=== PATIENT | female | born 1975 | race Hispanic/Latino ===

== ENCOUNTER 2022-10-02 18:53 | Emergency (ER) | payer OTHER, BC ==
--- OUTSIDE RECORDS SUMMARY | 2022-10-02 18:58 | XMS REPORT | Continuity of Care Document ---
:1975 Author Organization [facility] t Address [address] [place] [address] Care Team Providers Name Role Phone LINDA SANDS Primary Care Physician Unavailable JOSEPHINE FRIEDMAN Attending Clinician Unavailable Chance BYRNE, Marsha Rico Attending Clinician LINDA SANDS Attending Clinician Unavailable Josephine Friedman PA-C Attending Clinician Rajiv Coulter MD Attending Clinician Yue Aldana MA Attending Clinician Unavailable Jeane Aguilera MA Attending Clinician Unavailable 2, [facility] Attending Clinician Unavailable Audrey Fitzgerald MA Attending Clinician Unavailable MARI ORDOÑEZ Attending Clinician Unavailable ADELE OCAMPO Attending Clinician Unavailable ADELE OCAMPO Attending Clinician Unavailable Caden Attending Clinician Unavailable Doctor Unassigned, Frankewing Attending Clinician Unavailable TIMOTHY MARR Attending Clinician Unavailable Rigoberto BELLAMY, Beverley Bell Attending Clinician Corwin Davis MD Attending Clinician Ariadna Barraza MD Attending Clinician ARIADNA BARRAZA Attending Clinician Unavailable Shahriar Davidson DO Attending Clinician Adele Ocampo MD Attending Clinician Linda Sands MD Attending Clinician LINDA SANDS Attending Clinician Unavailable Pob1, [facility] Attending Clinician Unavailable Gaurav Navas MD Attending Clinician Lab, Adc Fam Pob I Attending Clinician Unavailable Severiano Arauz PA-C Attending Clinician SEVERIANO ARAUZ Attending Clinician Unavailable JOSEPHINE FRIEDMAN Admitting Clinician Unavailable Caden Admitting Clinician Unavailable Christi BYRNE, Ariadna Admitting Clinician ARIADNA BARRAZA Admitting Clinician Unavailable Payers Payer Name Policy Type Policy Number Effective Date Expiration Date Braxton machado [employer] HMO [id number] 2011 00:00:00 [facility] [id number] 2021 EMPLOYEE PLAN 00:00:00 [employer] (EPO) [id number] 2011 00:00:00 Problems Condition Condition Condition Status Onset Resolution Last Treating Co mments Source Name Details Category Date Date Treatment Clinician Date Dyslipidem Dyslipidem Disease Active Overview : Methodi ia ia 03-[address] 00:00: g of this Hospita 00 note l might be different from the original. Formattin g of this note might be different from the original. elevated TG, low HDL Fatty Fatty Disease Active Methodi liver liver 03-30 st 00:00: Hospita 00 l Thyroid Thyroid Problem Active [facility] nodule Nodule 29 Family 00:00: Practic 00 e Hyperlipid Hyperlipid Problem Active [facility] emia emia 29 Family 00:00: Practic 00 e Obesity Obesity Problem Active [facility] 7-29 Family 00:00: Practic 00 e Dizziness Dizziness Disease Active [facility] 04-03 st 00:00: Hospita 00 l Sludge in Sludge in Disease Active Met hodi gallbladde gallbladde 06-17 st r r 00:00: Hospita 00 l Prediabete Prediabete Disease Active 2018-11 M ethodi s s 11-26 st 00:00: Hospita 00 l Screening Screening Disease Active Overview: Univers for for 04-05 Formattin ity of colorectal colorectal 00:00: g of this [place] cancer cancer 00 note Medical might be Branch different from the original. Added automatic ally from request for surgery [id number] Obesity Obesity Disease Active Methodi (BMI (BMI 5-15 st 30-39.9) 30-39.9) 00:00: Hospit a 00 l RUSS RUSS Disease Active Methodi (obstructi (obstructi 5-12 st ve sleep ve sleep 00:00: Hospit a apnea) apnea) 00 l Erythema Erythema Disease Active Unive rs of nasal of nasal 3-20 ity of skin skin 00:00: [place] [facility] Branch Immunizati Immunizati Disease Active U nivers on on 18 [place] [address] [place] [address] Branch Carpal Carpal Disease Active Methodi tunnel tunnel 7[address] st syndrome syndrome 00:00: Hospit a of right of right 00 l wrist wrist Fibromyalg Fibromyalg Disease Active M ethodi ia ia 18 st 00:00: Hospita 00 l Vaginal Vaginal Disease Active Univers lesion lesion 6-05 ity of 00:00: [address] Abnormal Abnormal Disease Active Unive rs cervix cervix 6-05 ity of finding finding 00:00: [address] Allergies, Adverse Reactions, Alerts Allergy Allergy Status Severity Reaction(s) Onset Inactive Treating Comm ents Source Name Type Date Date Clinician NO KNOWN Drug Active Univers ALLERGIE Class ity of S [facility] Family History Family Member Diagnosis Comments Start Date Stop Date Source Natural father Coronary artery disease [facility] Natural father Hyperlipidemia Method [facility] Natural father Hypertension [facility] Natural father Rheum arthritis [facility] Natural mother Diabetes [facility] Natural mother Heart disease [facility] Natural mother Kidney disease Method [facility] Natural mother Thyroid cancer Method [facility] Social History Social Habit Start Date Stop Date Quantity Comments Source Alcohol intake 2022-09-29 2022-09-29 Ex-drinker [facility] 00:00:00 00:00:00 (finding) Exposure to 2022-05-03 2022-05-13 Not sure University of SARS-CoV-2 00:00:00 12:52:00 [facility] (event) Branch Tobacco use and 2022-03-30 2022-03-30 Smokeless tobacco [facility] exposure 00:00:00 00:00:00 non-user Sex Ass[birth year] [facility] 00:00:00 00:00:00 Smoking Status Start Date Stop Date Source Never smoked tobacco [facility] Medications Ordered Filled Start Stop Current Ordering Indication Dosage Frequency Signature Comments Components Source Medication Medication Date Date Medication? Clinician (SIG) Name Name vitamin 2021- No 500ug Take 500 Univ ers B-12 (B-12 7-05 13-07 mcg by ity of [facility]) 500 14:30: 00:00 mouth [place] mcg tablet 55 :00 daily. Medical Branch vitamin 2021- No 500ug Take 500 Univ ers B-12 (B-12 7-05 13-07 mcg by ity of [facility]) 500 14:30: 00:00 mouth [place] mcg tablet 55 :00 daily. Medical Branch MULTIVITAMI 2021- No Take by Un sabine N ORAL 05-13- mouth. ity of 14:30: 00:00 [place] 46 :00 Medical Branch MULTIVITAMI 2021- No Take by Un sabine N ORAL 05-13- mouth. ity of 14:30: 00:00 [place] 46 :00 Medical Branch aspirin 81 2021- No 81mg Take 81 mg Univers mg chewable 05-13 by mouth ity of tablet 14:30: 00:00 daily. [place] 36 :00 Medical Branch aspirin 81 2021- No 81mg Take 81 mg Univers mg chewable 05-13 by mouth ity of tablet 14:30: 00:00 daily. [place] 36 :00 Medical Branch fluconazole 2021- No [id number] 150mg Take 1 Methodi (DIFLUCAN) 04-[address] 150 MG 00:00: 04:59 (150 mg Hospita tablet 00 :00 total) by l mouth once for 1 dose. May repeat x 1 dose in 3-4 days if needed. sulfamethox 2021- No [id number] 1{tbl} Q.5D Take 1 Methodi azole-trime 04-[address] thoprim 00:00: 04:59 mouth 2 Hospit a (Bactrim 00 :00 (two) l DS) 800-160 times a mg per day for 5 tablet days. meclizine 2021-0 2021- No 25mg Q.[id number] Take 25 mg Methodi (ANTIVERT) 04-13 06-[id number] by mouth [address] 25 mg 11:13: 00:00 3D (three) Hospita tablet 18 :00 times a l day as needed for dizziness. ondansetron 2021-0 2021- No 4mg Q8H Take 4 mg Methodi (ZOFRAN) 4 -05 12- by mouth st MG tablet 11:13: 00:00 every 8 Hosp issa 18 :00 (eight) l hours as needed for nausea or vomiting. ondansetron 2021-0 Yes 4mg Take 4 mg U nivers 4 mg tablet 07 by mouth. ity of 00:00: [address] ondansetron 2021-0 Yes 4mg Take 4 mg U nivers 4 mg tablet 04-13 by mouth. ity of 00:00: [address] ondansetron 2021-0 Yes 4mg Take 4 mg U nivers 4 mg tablet 04-13 by mouth. ity of 00:00: [address] ondansetron 2021-0 Yes 4mg Take 4 mg U nivers 4 mg tablet 04-13 by mouth. ity of 00:00: [address] azelastine 2021-0 Yes [id number] 1{spray Q.5D 1 spray Methodi (ASTELIN) 04-13 } into each st 137 mcg 00:00: nostril 2 Hospi ta (0.1 %) 00 (two) l nasal spray times a day. Use in each nostril as directed meclizine 2021-0 Yes [id number] 25mg Q.30231938 Take 1 Methodi (ANTIVERT) -07 [id number] tablet (25 st 25 mg 00:00: 3D mg total) Hospita tablet 00 by mouth 3 l (three) times a day as needed for dizziness. ondansetron 2021-0 Yes [id number] 4mg Q12H Take 1 Methodi (ZOFRAN) 4 -07 tablet (4 st MG tablet 00:00: mg total) Hos enmanuel 00 by mouth l every 12 (twelve) hours as needed for nausea or vomiting. MULTIVITAMI 2021- No Take by Me willow N ORAL 03-30-[address] 14:53: 00:00 Hospita 24 :00 l aspirin 81 2021- No 81mg QD Chew 81 mg Methodi mg chewable 03-30-[address] tablet 14:53: 00:00 Hospita 23 :00 l doxycycline 2021- No 100mg Q.5D Take 100 Methodi (VIBRAMYCIN 5-19 06-[address] ) 100 MG 00:00: 00:00 mouth 2 Hospi ta capsule 00 :00 (two) l times a day. clindamycin 2021- No APPLY Meth miladis (CLINDAGEL) 03-[address] 1 % gel 00:00: 00:00 DAY TO Hospita 00 :00 FACE l oseltamivir 2021- No TAKE 1 Met hodi (TAMIFLU) 16 03-[address] 75 MG 00:00: 00:00 TWO TIMES Hospit a capsule 00 :00 DAILY l meclizine Yes [id number] 12.5mg Take 1 Univers 12.5 mg 5-29 tablet by ity of tablet 00:00: mouth 3 (three) Medical times Branch daily as needed for Dizziness. meclizine Yes [id number] 12.5mg Take 1 Univers 12.5 mg 5-29 tablet by ity of tablet 00:00: mouth 3 (three) Medical times Branch daily as needed for Dizziness. meclizine Yes [id number] 12.5mg Take 1 Univers 12.5 mg 5-29 tablet by ity of tablet 00:00: mouth 3 (three) Medical times Branch daily as needed for Dizziness. meclizine Yes [id number] 12.5mg Take 1 Univers 12.5 mg 5-29 tablet by ity of tablet 00:00: mouth 3 (three) Medical times Branch daily as needed for Dizziness. proMETHazin 2021- No [id number] 12.5mg Take 1 Univers e 12.5 mg 5-29 07-07 tablet by ity of tablet 00:00: 00:00 mouth [place] 00 :00 every 8 Medical (eight) Branch hours as needed for Nausea and Vomiting (N/V). proMETHazin 2021- No [id number] 12.5mg Take 1 Univers e 12.5 mg 04-04 tablet by ity of tablet 00:00: 00:00 mouth [place] 00 :00 every 8 Medical (eight) Branch hours as needed for Nausea and Vomiting (N/V). TIZANIDINE 2019-11 Yes [id number] 4mg TAKE 1-2 Univers 4 mg tablet 1-03 TABLETS BY it y of 00:00: MOUTH [place] 00 EVERY 8 Medical (EIGHT) Branch HOURS NEEDED (MUSCLE PAIN OR SPASM). TIZANIDINE 2019-11 Yes [id number] 4mg TAKE 1-2 Univers 4 mg tablet 1-03 TABLETS BY it y of 00:00: MOUTH [place] 00 EVERY 8 Medical (EIGHT) Branch HOURS NEEDED (MUSCLE PAIN OR SPASM). TIZANIDINE 2019-11 Yes [id number] 4mg TAKE 1-2 Univers 4 mg tablet 1-03 TABLETS BY it y of 00:00: MOUTH [place] 00 EVERY 8 Medical (EIGHT) Branch HOURS NEEDED (MUSCLE PAIN OR SPASM). TIZANIDINE 2019-11 Yes [id number] 4mg TAKE 1-2 Univers 4 mg tablet 1-03 TABLETS BY it y of 00:00: MOUTH [place] 00 EVERY 8 Medical (EIGHT) Branch HOURS NEEDED (MUSCLE PAIN OR SPASM). DULOXETINE 2021- No [id number] 20mg TAKE 1 Univers 20 mg 07-07 CAPSULE BY ity of capsule 00:00: 00:00 MOUTH [place] 00 :00 DAILY. Medical STOP THE Branch 30MG DOSE DULOXETINE 2021- No [id number] 20mg TAKE 1 Univers 20 mg 07-07 CAPSULE BY ity of capsule 00:00: 00:00 MOUTH [place] 00 :00 DAILY. Medical STOP THE Branch 30MG DOSE Immunizations Ordered Filled Immunization Date Status Comments [facility] [place] [facility] Immunization Name Name COVID-19, mRNA, COVID-19, mRNA, 2021-01-30 Completed [facility] LNP-S, PF, 30 LNP-S, PF, 30 00:00:00 Practice mcg/0.3 mL dose mcg/0.3 mL dose SARS-COV-2 SARS-COV-2 2021-01-01 Completed [facility] (COVID-19) vaccine, (COVID-19) vaccine, 00:00:00 Practice UNSPECIFIED UNSPECIFIED SARS-COV-2 COVID-19 2020-12-24 Completed Unive rsity of PFIZER VACCINE 00:00:00 [facility] SARS-COV-2 COVID-19 2020-12-24 Completed Unive rsity of PFIZER VACCINE 00:00:00 [facility] SARS-COV-2 COVID-19 2020-12-24 Completed Unive rsity of PFIZER VACCINE 00:00:00 [facility] SARS-COV-2 COVID-19 2020-12-24 Completed Unive rsity of PFIZER VACCINE 00:00:00 [facility] MODERNA COVID-19 2020-12-02 Completed Methodis t [facility] 2020-11-04 Completed Methodis t MRNA VACCINATION 00:00:00 [facility] Influenza Virus 2020-07-22 Completed Universit y of Vaccine 00:00:00 [facility] Influenza Virus 2020-07-22 Completed Universit y of Vaccine 00:00:00 [facility] Influenza Virus 2020-07-22 Completed Universit y of Vaccine 00:00:00 [facility] Influenza Virus 2020-07-22 Completed Universit y of Vaccine 00:00:00 [facility] Influenza, 2020-07-22 Completed [facility] Unspecified 00:00:00 [facility] TDAP (ADACEL) 2019-11-09 Completed University of VACCINE 00:00:00 [facility] TDAP (ADACEL) 2019-11-09 Completed University of VACCINE 00:00:00 [facility] TDAP (ADACEL) 2019-11-09 Completed University of VACCINE 00:00:00 [facility] TDAP (ADACEL) 2019-11-09 Completed University of VACCINE 00:00:00 [facility] Tdap 2019-11-09 Completed [facility] 00:00:00 [facility] Influenza Virus 2019-07-08 Completed Universit y of Vaccine 00:00:00 [facility] Influenza Virus 2019-07-08 Completed Universit y of Vaccine 00:00:00 [facility] Influenza Virus 2019-07-08 Completed Universit y of Vaccine 00:00:00 [facility] Influenza Virus 2019-07-08 Completed Universit y of Vaccine 00:00:00 [facility] Influenza, 2019-07-08 Completed [facility] Unspecified 00:00:00 Hospital Vital Signs Vital Name Observation Time Observation Value Comments Source Systolic blood 2022-05-13 18:37:00 126 mm[Hg] Univer sity of [facility] Diastolic blood 2022-05-13 18:37:00 88 mm[Hg] Unive rsity [facility] Heart rate 2022-05-13 18:37:00 76 /min General acute hospital Respiratory rate 2022-05-13 18:37:00 18 /min [facility] height 2022-05-13 18:37:00 157.5 cm General acute hospital Body weight 2022-05-13 18:37:00 83.008 kg General acute hospital BMI 2022-05-13 18:37:00 33.47 kg/m2 General acute hospital BP Diastolic 2021-06-04 00:00:00 83 mm[Hg] [facility] Height 2021-06-04 00:00:00 62 [in_i] [facility] BMI (Body Mass 2021-06-04 00:00:00 33.3 kg/m2 [facility] Practice BP Systolic 2021-06-04 00:00:00 127 mm[Hg] [facility] Body Weight 2021-06-04 00:00:00 182 [lb_av] [facility] BP Diastolic 2021-05-13 00:00:00 89 mm[Hg] [facility] Height 2021-05-13 00:00:00 62 [in_i] [facility] BMI (Body Mass 2021-05-13 00:00:00 33.6 kg/m2 [facility] Practice BP Systolic 2021-05-13 00:00:00 145 mm[Hg] [facility] Body Weight 2021-05-13 00:00:00 183.6 [lb_av] [facility] Systolic blood 2022-09-29 14:08:00 152 mm[Hg] Method ist Hospital pressure Diastolic blood 2022-09-29 14:08:00 83 mm[Hg] [facility] pressure Heart rate 2022-09-29 14:08:00 73 /min [facility] t Hospital Respiratory rate 2022-09-29 14:08:00 16 /min [facility] Body height 2022-09-29 14:08:00 157.5 cm [facility] Body weight 2022-09-29 14:08:00 86.637 kg [facility] BMI 2022-09-29 14:08:00 34.93 kg/m2 [facility] Body temperature 2022-04-21 20:12:00 37.5 Cande [facility] Oxygen saturation in 2022-04-13 15:26:00 97 /min [facility] Arterial blood by Pulse oximetry Procedures Procedure Date / Time Performing Clinician Source Performed CT HEAD WO CONTRAST 2022-08-13 20:42:12 [facility] [place] [facility] US PELVIS COMPLETE WITH 2022-07-14 14:11:52 Josephine Friedman [facility] TRANSVAGINAL Medical Branch COMPREHENSIVE HEARING 2022-04-21 20:34:00 [facility] TEST TSH WITH REFLEX TO FREE 2022-04-10 13:32:00 [facility] T4 VITAMIN D 25 HYDROXY 2022-04-10 13:32:00 [facility] LEVEL HEMOGLOBIN A1C 2022-04-10 13:32:00 [facility] LIPID PANEL 2022-04-10 13:32:00 [facility] COMPREHENSIVE METABOLIC 2022-04-10 13:32:00 [facility] PANEL URINALYSIS SCREEN AND 2022-04-10 13:32:00 [facility] [place] [facility] MICROSCOPY, WITH REFLEX TO CULTURE CBC WITH PLATELET AND 2022-04-10 13:32:00 [facility] [place] [facility] DIFFERENTIAL US, thyroid 2021-05-13 00:00:00 [facility] Yuko aguilar Practice US, CAROTID 2021-05-13 00:00[facility]00 [facility]EXTRACRANIAL Practice ARTERY (BILATERAL) Endometrial Ablation 2012-11-07 00:00:00 [facility] D&c of Cervical Stump 2002-11-07 00:00:00 Angélica sparks [facility] Plan of Care Planned Activity Planned Date Details Comments Source Future Scheduled 2022-09-29 HEPATITIS B [facility] Test 07:56:18 VACCINES (1 of 3 - Hospital 3-dose series) [code = HEPATITIS B VACCINES (1 of 3 - 3-dose series)] Future Scheduled 2022-09-29 COLONOSCOPY [facility] Test 07:56:18 SCREENING [code = Hospital COLONOSCOPY SCREENING] Future Scheduled 2022-09-29 INFLUENZA VACCINE Method ist Test 07:56:18 [code = INFLUENZA Hospital VACCINE] Future Scheduled 2022-09-29 BREAST CANCER [facility] Test 07:56:18 SCREENING [code = Hospital BREAST CANCER SCREENING] Future Scheduled 2022-09-29 COVID-19 VACCINE (5 Postponed from Me thodist Test 07:56:18 - Booster for 03/27/2021 Hospital Moderna series) (Patient Refused) [code = COVID-19 VACCINE (5 - Booster for Moderna series)] Future Scheduled 2022-09-29 Screening for [facility] Test 07:56:18 malignant neoplasm Hospital of cervix (procedure) [code = 440756345] Encounters Start End Encounter Admission Attending Care Care Encounter Source Date/Time Date/Time Type Type Clinicians Facility Department ID 2021-09-06 Emergency [facility] [id number] Univers 21:57:33 [facility] 2023-05-16 2023-05-16 Outpatient R ELDER [facility] [id number] Univers 15:30:00 15:30:00 [facility] [place] [facility] 2023-05-16 2023-05-16 Outpatient R ELDER [facility] [id number] Univers 15:30:00 15:30:00 [facility] [place] [facility] 2022-09-29 2022-09-29 Office Chance, 1.2.840.1 [id number] Methodi 08:15:00 10:03:32 Visit Marsha 20025.1.[address] Viraf 3.430.2.7 Hospit a .3.751689 l .8 2022-09-29 2022-09-29 Outpatient CHANCE [facility] [id number] [place] 00:00:00 00:00:[address] MAR[address] 2022-09-29 2022-09-29 Travel 1.2.840.1 1.2.603.079 [id number] Methodi 00:00:00 00:00:[address] 3.430.2.7 0.2.7.3.698 Ho spita .3.144561 084.8 l .8 2022-08-17 2022-08-17 Travel 1.2.840.1 1.2.070.216 [id number] Methodi 00:00:00 00:00:[address] 3.430.2.7 0.2.7.3.698 Ho spita .3.691371 084.8 l .8 2022-08-13 2022-08-13 Travel 1.2.840.1 1.2.733.743 [id number] Methodi 00:00:00 00:00:[address] 3.430.2.7 0.2.7.3.698 Ho spita .3.802963 084.8 l .8 2022-08-13 2022-08-13 Outpatient LOWBER, [facility] [id number] [place] 00:00:00 00:00:[address] 2022-07-26 2022-07-26 Telephone [facility] 1.2.840.114 [id number] Univers 00:00:00 00:00:00 Josephine HARTMAN 350.1.13.10 i ty [facility] 4.2.7.2.686 [facility] [id number] [place] [address] 2022-07-14 2022-07-14 [facility] [id number] Univers 07:52:32 23:59:00 JOSEPHINE rehman [facility] [place] 2022-07-14 2022-07-14 [facility] 1.2.840.114 [id number] [facility] 07:52:32 23:59:00 Encounter Josephine HARTMAN 350.1.13.10 ity [facility] 4.2.7.2.686 [facility] [id number] [facility] 806 Branch 2022-06-18 2022-06-18 Documentat Marylin, 1.2.840.1 [id number] Methodi 00:00:00 00:00:00 ion Rajiv 91560.1.[address] Azalia 3.430.2.7 Hospi ta .3.107818 l .8 2022-06-16 2022-06-16 Procedure 1.2.840.1 [id number] Methodi 13:00:00 16:58:[address] 3.430.2.7 Hospit a .3.932748 l .8 2022-06-16 2022-06-16 Telephone Vinnie 1.2.840.1 [id number] Methodi 00:00:00 00:00:00 [place] [address]65.1.[address] 3.430.2.7 Hospit a .3.269963 l .8 2022-06-16 2022-06-16 Travel 1.2.840.1 1.2.077.508 [id number] Methodi 00:00:00 00:00:[address] 3.430.2.7 0.2.7.3.698 spita .3.401542 084.8 l .8 2022-06-16 2022-06-16 Outpatient [facility] [id number] [place] 00:00:00 00:00:[address] 2022-06-07 2022-06-07 Telephone Willy, 1.2.840.1 [id number] Methodi 00:00:00 00:00:[address] 3.430.2.7 Hospit a .3.019302 l .8 2022-05-13 2022-05-13 Quality Assurance Representative 2, Adc Lab [facility] 1.2.840.114 [id number] [facility] 15:15:00 15:30:00 Visit Josephine Friedman 350.1.13.10 ity [facility] 4.2.7.2.686 [place] [id number] Me dical NAL [address] [facility] 2022-05-13 2022-05-13 [facility] [id number] Univers 13:00:00 14:34:30 JOSEPHINE [facility] 2022-05-13 2022-05-13 [facility] 1.2.177.353 [id number] [facility] 13:00:00 14:34:30 Visit Josephine HARTMAN 350.1.13.10 i ty [facility] 4.2.7.2.686 [place] [id number] Me dical NAL [address] [facility] 2022-05-13 2022-05-13 Outpatient [facility] Univers 13:00:00 14:34:30 [facility] [place] [facility] 2022-04-21 2022-04-21 Office Linda Sands 1.2.840.1 [id number] Methodi 15:30:00 16:06:39 Visit Rajiv Coulter 13741.1.[address] 3.430.2.7 Hospit a .3.549576 l .8 2022-04-21 2022-04-21 Outpatient WICHO [facility] [id number] [place] 00:00:00 00:00:00 [address] 2022-04-16 2022-04-16 Telephone Yara Fitzgerald.2.840.1 [id number] Methodi 00:00:00 00:00:[address] 3.430.2.7 Hospit a .3.528216 l .8 2022-04-14 2022-04-14 Orders Yara Sands.2.840.1 [id number] Methodi 00:00:00 00:00:00 Only Linda 52123.1.[address] 3.430.2.7 Hospit a .3.363948 l .8 2022-04-13 2022-04-13 Office Wagoner, 1.2.840.1 [id number] Methodi 10:30:00 11:15:58 Visit Wondiful 23593.1.[address] 3.430.2.7 Hospit a .3.322084 l .8 2022-04-13 2022-04-13 Travel 1.2.840.1 1.2.076.293 [id number] Methodi 00:00:00 00:00:[address] 3.430.2.7 0.2.7.3.698 Ho spita .3.088078 084.8 l .8 2022-04-13 2022-04-13 Outpatient WICHO, [facility] [id number] [place] 00:00:00 00:00:[address] 2022-04-10 2022-04-10 Orders Wicho, 1.2.840.1 [id number] Methodi 00:00:00 00:00:00 Only Wondiful [address]756.1.[address] 3.430.2.7 Hospit a .3.052998 l .8 2022-04-06 2022-04-06 Travel 1.2.840.1 1.2.191.127 [id number] Methodi 00:00:00 00:00:[address] 3.430.2.7 0.2.7.3.698 Ho spita .3.962577 084.8 l .8 2022-03-30 2022-03-30 Office Wicho, 1.2.840.1 [id number] Methodi 14:30:00 15:16:57 Visit Wondiful 51878.1.[address] 3.430.2.7 Hospit a .3.434785 l .8 2022-03-30 2022-03-30 Travel 1.2.840.1 1.2.597.924 [id number] Methodi 00:00:00 00:00:[address] 3.430.2.7 0.2.7.3.698 Ho spita .3.102320 084.8 l .8 2022-03-30 2022-03-30 Outpatient WICHO [facility] [id number] [place] 00:00:00 00:00:00 [address] 2022-03-25 2022-03-25 Travel 1.2.840.1 1.2.236.799 [id number] Methodi 00:00:00 00:00:[address] 3.430.2.7 0.2.7.3.698 Ho spita .3.603260 084.8 l .8 2022-03-12 2022-03-12 [facility] [id number] Univers 14:44:25 23:59:00 JOSEPHINE rehman [facility] 2022-03-12 2022-03-12 [facility] 1.2.840.114 [id number] Univers 14:44:25 23:59:00 Encounter Josephine HARTMAN 350.1.13.10 [facility] 4.2.7.2.686 [facility] [phone] [address] 2022-03-02 2022-03-02 Outpatient Tamra ORDOÑEZ [facility] [id number] Univers 08:00:00 08:00:00 MARI rehman [facility] 2021-11-11 2021-11-11 Outpatient Tamra FRIEDMAN [facility] [id number] Univers 00:00:00 00:00:00 JOSEPHINE rehman [facility] 2021-10-21 2021-10-21 Outpatient ADELE MAYER [facility] [id number] Univers 09:00:00 09:00:00 ADELE OCAMPO [facility] 2021-09-30 2021-09-30 Outpatient Clint_T VFP VFP [id number] [place] 02:08:00 02:08:00 [id number] Family Practic e 2021-08-262021-08-26 Outpatient Daniel_T VFP VFP 20 [facility] 02:09:00 02:09:00 [id number] Family Practic e 2021-06-09 2021-06-09 Outpatient Daniel_T VFP VFP 03-26 [facility] 11:25:00 11:25:00 [id number] Family Practic e 2021-06-04 2021-06-04 Katya N Daniel_T VFP [place] - [id number] 0 [place] 00:00:00 00:00:00 FLORENCE Valente: [place] [id number] [facility] 16[facility] Medical - Practi c Shadow JORI_Gill e [place] ow [facility], [address], [place] [address] , Ph. 2021-06-02 2021-06-02 Outpatient Daniel_T VFP VFP 03-26 [facility] 04:35:00 04:35:00 [id number] Family Practic e 2021-05-21 2021-05-21 Orders Doctor SEVERIANO 1.2.840.114 [id number] Univers 00:00:00 00:00:00 Only Unassigned, JOVANY 350.1.13.10 ity of [place] [facility] 4.2.7.2.686 [place] [phone] [address] 2021-05-16 2021-05-16 Outpatient Daniel_T VFP VFP 03-26 [facility] 12:10:00 12:10:00 [id number] Family Practic e 2021-05-13 2021-05-13 Tevin Daniel_T VFP [place] - 0853143-5 0 Village 00:00:00 00:00:00 [facility] [id number] Family [facility] - Pracapollo bain MD: [id number] JORI_MIGUELITO_Kwabena sparks Shadow ow [place] [facility], [address], [place] [address] , Ph. 2021-05-12 2021-05-12 Outpatient Tamra MARR [facility] [id number] Univers 08:30:00 08:30:00 TIMOTHY itadeola [facility] 2021-05-12 2021-05-12 Outpatient Clint_Praveen VFP VFP [id number] 5-20 [place] 02:33:00 02:33:00 [id number] Family Practic e 2021-05-07 2021-05-07 Outpatient Tamra FRIEDMAN [facility] [id number] Univers 08:45:00 08:45:00 JOSEPHINE ori [facility] 2021-05-06 2021-05-06 Office Elder [facility] 1.2.340.920 [id number] Univers 14:59:47 16:11:39 Visit Josephine Hartman 350.1.13.10 i [place] [phone] Ga dical [address] 2021-05-06 2021-05-06 Outpatient R ELDER [facility] [id number] Univers 15:00:00 15:00:00 [facility] 2021-04-20 2021-04-20 Outpatient Tamra FRIEDMAN [facility] [id number] Univers 08:00:00 08:00:00 [facility] 2021-04-03 2021-04-04 Emergency Beverley [place] 1.2.840 .114 [id number] Univers 10:49:00 11:55:00 Corwin Davis 350.1.13.10 ity of [facility] 4.2.7.2.686 [place] [phone] [facility] [address] [place] 2021-04-03 2021-04-04 [facility] [id number] Univers 10:49:00 11:55:00 [facility] 2021-04-03 2021-04-03 Orders Doctor العلي 1.2.840.114 [id number] Univers 00:00:00 00:00:00 Only Unassigned, JOVANY 350.1.13.10 ity of [place] [facility] 4.2.7.2.686 [place] [phone] [facility] [address] 2021-01-22 2021-01-22 Patient Stuart [facility] 1.2.840.114 [id number] Univers 00:00:00 00:00:00 Outreach Shahriar PRIMARY 350.1.13.10 i ty of [facility] [place].2.7.2.[place] [phone] Ga dical [address] [place] 2020-10-15 2020-10-15 [facility] 1.2.580.886 [id number] Univers 08:58:52 09:13:43 Visit Adele T [place] 350.1.13.10 it[place].2.[place] [phone] Ga dical nal 085 [facility] 2020-10-15 2020-10-15 Outpatient R ADELE OCAMPO [facility] [id number] Univers 09:00:00 09:00:00 ADELE OCAMPO ity of [facility] 2020-09-07 2020-09-07 [facility] 1.2.840.114 [id number] Univers 00:00:00 00:00:00 Wondiful A [place] 350.1.13.10 it[place].2.[place] [phone] Ga dical nal 044 [facility] 2020-07-07 2020-07-07 [facility] 1.2.840.114 [id number] Univers 00:00:00 00:00:00 Wondiful A [place] 350.1.13.10 it[place].2.[place] [phone] Ga dical nal 044 [facility] 2020-06-16 2020-06-16 [facility] 1.2.569.120 [id number] Univers 14:43:49 23:59:00 Encounter Wondiful A [place] 350.1.13.10 ity of [place] 4.2.7.2.686 [place] [phone] [facility] [address] [place] 2020-06-16 2020-06-16 [facility] [id number] Univers 00:00:00 00:00:00 WONDIFUL ity o f [facility] 2020-06-16 2020-06-16 Orders Doctor SEVERIANO 1.2.840.114 [id number] Univers 00:00:00 00:00:00 Only Unassigned, JOVANY 350.1.13.10 ity of [place] HOSPITAL 4.2.7.2.686 [place] [phone] [address] 2020-06-15 2020-06-15 [facility] 1.2.840.114 [id number] Univers 00:00:00 00:00:00 Wondiful A [place] 350.1.13.10 it[place].2.[place] [phone] Ga dical nal 044 [facility] 2020-06-09 2020-06-09 Quality Assurance Representative 2, Adc Lab [facility] 1.2.840.114 [id number] Univers 13:22:41 13:37:41 Visit Linda Sands A [place] 350.1.13. 10 it[place] of [place].2.7.2.[place] [phone] Ga dical nal 353 [facility] 2020-06-09 2020-06-09 Office [facility] 1.2.840.114 [id number] Univers 11:26:35 12:17:20 Visit Wondiful A [place] 350.1.13.10 it[place].2.[place] [phone] Ga dical nal 044 [facility] 2020-06-09 2020-06-09 Outpatient R WICHO [facility] [id number] Univers 11:30:00 11:30:00 WONDIFUL ity o f [facility] 2020-06-09 2020-06-09 Orders SEVERIANO Sands 1.2.840.114 [id number] Univers 00:00:00 00:00:00 Only Wondiful A JOVANY 350.1.13.10 ity of HOSPITAL 4.2.7.2.686 [place] [phone] [address] 2020-05-27 2020-05-27 Outpatient R WICHO [facility] [id number] Univers 08:45:00 08:45:00 WONDIFUL ity o f [facility] 2020-05-26 2020-05-26 Urgent Pob1, Acute Care Clinic [facility] 1. 2.840.114 [id number] Univers 12:54:44 13:14:44 Care [facility] 350.1.13.1 0 ity of [place] 4.2.7.2.686 [place] Professio [phone] Ga dical nal 044 [place] Office [facility] 2020-05-26 2020-05-26 Outpatient R WICHO [facility] [id number] Univers 13:00:00 13:00:00 WONDIFUL ity o f [facility] 2020-05-20 2020-05-20 [facility] 1.2.840.114 [id number] Univers 00:00:00 00:00:00 Wondiful A Health 350.1.13.10 ity of [place] 4.2.7.2.686 [place] Professio [phone] [facility] nal 044 [facility] 2020-05-10 2020-05-10 Telephone SEVERIANO Navas 1.2.835.688 [id number] Univers 00:00:00 00:00:00 Gaurav MANZO 350.1.13.10 i ty of [facility] 4.2.7.2.686 [place] [phone] [address] 2020-05-08 2020-05-08 Laboratory Lab, [facility] Fam Pob I [facility] 1.2. 840.114 [id number] Univers 14:35:31 14:55:31 Only Severiano [facility] 350.1.13.10 ity of [place] 4.2.7.2.686 [place] Professio [phone] Ga dicme nal 044 [place] Office [facility] 2020-05-08 2020-05-08 Outpatient R [facility] [id number] Univers 14:40:00 14:40:00 ity [facility] 2020-05-08 2020-05-08 Outpatient R JJ [facility] [id number] Univers 14:40:00 14:40:00 SEVERIANO rehman [facility] 2020-04-25 2020-04-25 Outpatient R ELDER [facility] [id number] Univers 08:00:27 23:59:00 JOSEPHINE ity [facility] 2020-04-25 2020-04-25 Hospital [facility] 1.2.840.114 [id number] Univers 08:00:00 23:59:00 Encounter Josephine Hartman 350.1.13.10 ity of [place]2.7.2.686 [place] [phone] [facility] [address] [place] 2020-04-18 2020-04-18 Office [facility] 1.2.313.863 [id number] Univers 09:05:52 09:35:52 Visit Josephine Hartman 350.1.13.10 i ty [place].2.[place] [phone] [facility] 134 [facility] 2020-04-18 2020-04-18 Outpatient [facility] [id number] [facility] 09:00:00 09:00:00 [facility] 2020-04-18 2020-04-18 Letter Doctor SEVERIANO 1.2.840.114 [id number] Univers 00:00:00 00:00:00 (Out) Unassigned, JOVANY 350.1.13.10 ity of [place] [facility] 4.2.7.2.686 [place] [phone] [facility] 0[address] [place] 2020-03-23 2020-03-23 [facility] 1.2.840.114 [id number] Univers 00:00:00 00:00:00 Wondiful A Health 350.1.13.10 ity of [place] 4.2.7.2.686 [place] Professio [phone] [facility] 044 [place] Office [facility] 2020-02-15 2020-02-15 [facility]medici [facility] 1.2.840.114 [id number] Univers 07:41:08 15:57:32 ne Visit Linda A [place] 350.1.13.10 it[place] of [place]2.[place].2.[place] [phone] [facility] 044 [facility] 2020-02-15 2020-02-15 [facility] [id number] Univers 14:45:00 14:45:00 WONDIFUL ity o f [facility] 2020-01-30 2020-01-30 Telephone Wicho [facility] 1.2.840.114 [id number] Univers 00:00:00 00:00:00 Wondiful A Health 350.1.13.10 ity of [place] 4.2.7.2.686 [place] Professio [phone] [address] Office [facility] 2020-01-24 2020-01-24 Office Pob1, Acute Care Clinic [facility] 1. 2.840.114 [id number] Univers 08:45:20 11:56:15 Visit Linda [facility] 350.1.13.1 0 ity of [place] 4.2.7.2.686 [place] Professio [phone] [address] 2020-01-24 2020-01-24 Outpatient R WICHO [facility] [id number] Univers 08:45:00 08:45:00 WONDIFUL ity o f [facility] 2020-01-12 2020-01-12 Refill Wicho [facility] 1.2.840.114 [id number] Univers 00:00:00 00:00:00 Wondiful A Health 350.1.13.10 ity of [place] 4.2.7.2.686 [place] Professio [phone] [address] 2019-06-13 2019-06-13 Office Terrence [facility] 1.2.488.131 [id number] Univers 11:21:54 11:52:00 Visit Adele Morton [place] 350.1.13.10 ity of [place] 4[place].2.[place] [phone] [facility] 085 [facility] 2019-06-13 2019-06-13 Orders Doctor SEVERIANO 1.2.840.114 [id number] Univers 00:00:00 00:00:00 Only Unassigned, JOVANY 350.1.13.10 ity of [place] HOSPITAL 4.2.7.2.686 [place] [phone] Medi chayito [address] [place] Results Test Description Test Time Test Comments Results Result Comments Source Comprehensive metabolic panel 2022-04-12 10:59:00 Test Item Value Reference Range Interpretation Comme nts Glucose (test code = 116 mg/dL 65-99 H Fastin g reference 2345-7) interval For so meone without known d iabetes, a glucose valuebe tween 100 and 125 mg/dL i s consistent withprediabetes and should be confi rmed with afollow-up test . BUN (test code = 3094-0) 11 mg/dL 7-25 Creatinine (test code = 0.80 mg/dL 0.50-1.10 2160-0) EGFR Non-Afr. [place] See_Comment [Aut omated message] The (test code = 2775) system [facility] generated this result tra nsmitted reference range : > OR = 60 mL/min/1.73m 2. The reference range was not used to interpr et this result as normal/abnormal . EGFR See_Comment [Auto mated message] The (test code = 2774) system [facility] generated this result tra nsmitted reference range : > OR = 60 mL/min/1.73m 2. The reference range was not used to interpr et this result as normal/abnormal . BUN/creatinine ratio NOT APPLICABLE See_Comment [Aut omated message] The (test code = 3097-3) system which generated this result tra nsmitted reference range : 6 - 22 (calc). The ref erence range was not u sed to interpret this result as normal/abnormal . Sodium (test code = 139 mmol/L 335-126 6036-2) Potassium (test code = 4.1 mmol/L 3.5-5.3 2823-3) Chloride (test code = 108 mmol/L 98-110 2075-0) CO2 (test code = 2027-9) 24 mmol/L 20-32 Calcium (test code = 9.3 mg/dL 8.6-10.2 37873-9) Protein (test code = 6.9 g/dL 6.1-8.1 2885-2) Albumin, S (test code = 4.5 g/dL 3.6-5.1 1751-7) Globulin, total (test See_Comment [Auto mated message] The code = 70818-1) system which generated this result tra nsmitted reference range : 1.9 - 3.7 g/dL (calc) . The reference range was not used to interpr et this result as normal/abnormal . Albumin/globulin ratio See_Comment [Aut omated message] The (test code = 1759-0) system which generated this result tra nsmitted reference range : 1.0 - 2.5 (calc). The reference range was not u sed to interpret this result as normal/abnormal . Total bilirubin (test 0.7 mg/dL 0.2-1.2 code = 1975-2) Alkaline phosphatase 79 U/L 31-125 (test code = 6768-6) AST (test code = 1920-8) 18 U/L 10-35 ALT (test code = 1742-6) 17 U/L 6-29 JOSE (test code = JOSE) FASTING:YES FASTING: YES RAC (test code = RAC) Performing Organization Information: Site ID: RGA Name: [facility] Lab Address: [address] [place] [phone] Director: Eliseo Levy Lab Interpretation (test Abnormal code = 09101-3) [facility] Center[facility] [id number] 10:59:00 Test Item Value Reference Range Interpretation Comments Cholesterol, total 166 mg/dL See_Comment [Automat ed (test code = 2093-3) message ] The system which generated this result transmitted reference range : <=200. The reference range was not used to interpret this result as normal/abnormal . HDL cholesterol 52 mg/dL See_Comment [Automated (test code = 2085-9) message ] The system which generated this result transmitted reference range : > OR = 50. The reference range was not used to interpret this result as normal/abnormal . Triglycerides (test 103 mg/dL See_Comment [Automa gerardo code = 2571-8) message] The system which generated this result transmitted reference range : <=150. The reference range was not used to interpret this result as normal/abnormal . LDL cholesterol mg/dL (calc) Reference ra nge: calculated (test <100 Desira ble code = 64139-9) range <100 m g/dL for primary prevention; <70 mg/dL for patients with C HD or diabetic patients with > or = 2 CHD risk factors. LDL-C is now calculated using the Ja-Maldonado calculation, which is a validated novel method providin g better accuracy than the Friedewald equation in the estimation of LDL-C. Ja S S et al. JUVENAL. 2013;310(24): 4877-7433 (http://educati on .Digiscend .com/faq/BYV335 ) Cholesterol/HDL See_Comment [Automated ratio (test code = message] The 9830-1) system which generated this result transmitted reference range : <5.0 (calc). Th e reference range was not used to interpret this result as normal/abnormal . Non-HDL cholesterol See_Comment For dmitriy ents with (test code = diabetes plus 1 47422-8) major ASCVD ris k factor, treatin g to a non-HDL-C goal of <100 mg/dL (LDL-C of <70 mg/dL) is considered a therapeutic option. [Automated message] The system which generated this result transmitted reference range : <130 mg/dL (calc). The reference range was not used to interpret this result as normal/abnormal . JOSE (test code = FASTING:YES JOSE) FASTING: YES RAC (test code = Performing RAC) Organization Information: Site ID: RGA Name: [facility] Lab Address: [address] [place] [id number] Director: Eliseo Levy [facility] CenterHemoglobin [id number] 10:59:00 Test Item Value Reference Range Interpretation Comments Hemoglobin A1C See_Comment For the purpo se of (test code = screening for t he 4548-4) presence ofdiab etes: <5.7% Consiste nt with the absenc e of diabetes5.7-6.4 % Consistent with increased risk for diabetes (prediabetes)> or =6.5% Consisten t with diabetes This a ssay result is consi stent with a decrease d riskof diabetes . Currently, no consensus exist s regarding use ofhemoglobin A1 c for diagnosis of di abetes in children. According to [place] er[place] Diabetes Associ ation (ADA)guidelines , hemoglobin A1c <7.0% represents optimalcontrol in non- di abetic patients. Differentmetric s may apply to specif ic patient populat ions. Standards of Ga dical Care in Diabetes(ADA). [Automated mess age] The system ic h generated this result transmitted ref erence range: <5.7 % o f total Hgb. The reference range was not used to int erpret this result as normal/abnormal . JOSE (test code = FASTING:YES JOSE) FASTING: YES RAC (test code = Performing RAC) Organization Information: Site ID: RGA Name: [facility] Lab Address: [address] [place] [phone] Director: Eliseo Levy [facility] with platelet and [id number] 10:59:00 Test Item Value Reference Range Interpretation Comments WBC (test code = See_Comment [Automated 6690-2) message] The system which generated this result transmitted reference range : 3.8 - 10.8 Thousand/uL. Th e reference range was not used to interpret this result as normal/abnormal . RBC (test code = See_Comment H [Automated 789-8) message] The system which generated this result transmitted reference range : 3.80 - 5.10 Million/uL. The reference range was not used to interpret this result as normal/abnormal . HGB (test code = 15.9 g/dL 11.7-15.5 H 718-7) HCT (test code = 43.8 % 35.0-45.0 4544-3) MCV (test code = 84.9 fL 80.0-100.0 787-2) MCH (test code = 30.8 pg 27.0-33.0 785-6) MCHC (test code = 36.3 g/dL 32.0-36.0 H 786-4) RDW (test code = 13.2 % 11.0-15.0 788-0) Platelet count (test See_Comment [Autom ated code = 777-3) message] The system which generated this result transmitted reference range : 140 - 400 Thousand/uL. Th e reference range was not used to interpret this result as normal/abnormal . MPV (test code = 12.3 fL 7.5-12.5 776-5) Neutrophils, See_Comment [Automated absolute (test code message] The = 751-8) system which generated this result transmitted reference range : 1,500 - 7,800 cells/uL. The reference range was not used to interpret this result as normal/abnormal . Lymphocytes, See_Comment [Automated absolute (test code message] The = 731-0) system which generated this result transmitted reference range : 850 - 3,900 cells/uL. The reference range was not used to interpret this result as normal/abnormal . Monocytes, absolute See_Comment [Automa gerardo (test code = 742-7) message] The system which generated this result transmitted reference range : 200 - 950 cells/uL. The reference range was not used to interpret this result as normal/abnormal . Eosinophils, See_Comment [Automated absolute (test code message] The = 711-2) system which generated this result transmitted reference range : 15 - 500 cells/uL. The reference range was not used to interpret this result as normal/abnormal . Basophils, absolute See_Comment [Automa gerardo (test code = 704-7) message] The system which generated this result transmitted reference range : 0 - 200 cells/u L. The reference range was not used to interpr et this result as normal/abnormal . Neutrophils (test 61.1 % code = 770-8) Lymphocytes (test 28.2 % code = 736-9) Monocytes (test code 7.3 % = 5905-5) Eosinophils (test 2.5 % code = 713-8) Basophils + RC (test 0.9 % code = 706-2) JOSE (test code = FASTING:YES JOSE) FASTING: YES RAC (test code = Performing RAC) Organization Information: Site ID: RGA Name: [facility] Lab Address: [address] [place] [phone] Director: Eliseo Levy Lab Interpretation Abnormal (test code = 16164-6) [facility] CenterVitamin D 25 hydroxy [id number] 10:59:00 Test Item Value Reference Range Interpretation Comments Vitamin D, 34 ng/mL 30-100 Vitamin D Statu s 25-hydroxy (test 25-OH Vitam in D: code = 1988-) Deficiency: < 20 ng/mLInsufficie ncy : 20 - 29 ng/mLOptimal: > or = 30 ng/mL For 25-OH Vitamin D testing on patients on D2-supplementat ion and patients fo r whom quantitati on of D2 and D3 fractions is required, the QuestAssureD(TM )25 -OH VIT D, (D2,D3), LC/MS/ MS is recommended: order code 9288 8 (patients >2yrs).See Note 1 Note 1 For additional information, please refer to http://educatio n.Q uestDiagnostics .co m/faq/KEA259 (T his link is being provided for informational/e marisol ational purpose s only.) JOSE (test code = FASTING:YES FASTING: JOSE) YES RAC (test code = Performing RAC) Organization Information: Site ID: YOHAN Name: [facility] Lab Address: [address] [place] [phone] Director: Eliseo Levy [facility] CenterUrinalysis screen and microscopy, with reflex to culture 2022-04-12 10:59:00 Test Item Value Reference Interpretation Comments Range Color, UA (test YELLOW YELLOW code = 5778-6) Appearance (test CLEAR CLEAR code = 5767-9) Specific gravity, 1.001-1.035 urine (test code = 5811-5) pH, urine (test 5.0-8.0 code = 5803-2) Glucose, urine NEGATIVE NEGATIVE (test code = 18928-3) Bilirubin, UA (test NEGATIVE NEGATIVE code = 5770-3) Ketones, UA (test NEGATIVE NEGATIVE code = 2514-8) Occult blood, urine NEGATIVE NEGATIVE (test code = 5794-3) Protein, UA (test NEGATIVE NEGATIVE code = 31513-5) Nitrite, UA (test NEGATIVE NEGATIVE code = 5802-4) Leukocyte esterase, 2+ NEGATIVE A UA (test code = 5799-2) WBC, UA (test code NONE SEEN See_Comment [Automat ed message] = 5821-4) The system [employer] generated this result transmit gerardo reference range : < OR = 5 /HPF. Th e reference range was not used to interpret this result as normal/abnormal . RBC, UA (test code NONE SEEN See_Comment [Automat ed message] = 57654-0) The system [employer] generated this result transmit gerardo reference range : < OR = 2 /HPF. Th e reference range was not used to interpret this result as normal/abnormal . Squamous epithelial 0-5 See_Comment [Automa gerardo message] cells, UA (test The system w [facility] code = 24767-3) generated th is result transmit gerardo reference range : < OR = 5 /HPF. Th e reference range was not used to interpret this result as normal/abnormal . Bacteria, UA (test NONE SEEN NONE SEEN /HPF code = 5769-5) Hyaline casts, UA NONE SEEN NONE SEEN /LPF (test code = 5796-8) Urine culture (test SEE NOTE A CULTURE , URINE, code = 630-4) ROUTINE Micro Number: [id number] 1 Test Status: Fi nal Specimen Source : Urine Specimen Quality: [place] te Result: 50,000-100,000 CFU/mL of Coagu lase negative staphylococcus, not S. saprophyticu s Please call the laboratory with in three (3) days if further identification or susceptibilitie s are required. COMME NT: Additional non-predominati ng organism(s) isolated. These organisms, comm only found on clinical product manager al and internal genitalia, are considered colonizers. No further testing performed. JOSE (test code = FASTING:YES JOSE) FASTING: YES RAC (test code = Performing RAC) Organization Information: Site ID: [id number] Name[facility] Address: [address] [place] [id number] Director: Eliseo Levy Lab Interpretation Abnormal (test code = 20700-7) [facility] reflex to [id number] 10:59:00 Test Item Value Reference Range Interpretation Comments TSH reflex to mIU/L Reference Ran ge > FT4 (test code or = 20 Years = 3016-3) 0.40-4.50 Range s First trimester 0.26-2.66 Secon d trimester 0.55-2.73 Third trimester 0.43-2.91 JOSE (test code FASTING:YES FASTING: = JOSE) YES RAC (test code Performing = RAC) Organization Information: Site ID: [id number] [facility] Address: [address] [place] [id number] Director: Eliseo Levy [facility] [Units/volume] in [id number] 16:20:00 Test Item Value Reference Range Interpretation Comments thyroid peroxidase antibodies (test <1 <9 code = thyroid peroxidase antibodies) [facility] and Thyrogobulin Ab panel - Serum or Plasma 2021-05-14 16:20:00 Test Item Value Reference Range Interpretation Comments thyroglobulin <1 See_Comment [Automated me ssage] antibodies (test code = The system which thyroglobulin generated this result antibodies) transmitted ref erence range: < or = 1 . The reference range was not used to int erpret this result as normal/abnormal . thyroglobulin (test 9.3 NG/mL code = thyroglobulin) [facility]RU[facility] Serum or Plasma 2021-05-14 06:06:00 Test Item Value Reference Range Interpretation Comments T3 uptake (test code = T3 uptake) 29 % 22-35 [facility] (T3RU) in Serum or Plasma 2021-05-14 06:06:00 Test Item Value Reference Range Interpretation Comments T3 uptake (test code = T3 uptake) 29 % 22-35 [facility] [Mass/volume] in Serum or Plasma 2021-05-13 15:52:00 Test Item Value Reference Range Interpretation Comments T4 free (test code = T4 free) 0.87 NG/dL 0.70-1.48 [facility] [Units/volume] in Serum or [id number] 15:52:00 Test Item Value Reference Range Interpretation Comments TSH (test code = TSH) 0.751 uIU/mL 0.350-4.940 [facility]
[2022-10-02] MEDS ORDERED: KETOROLAC 30 MG/ML INJ ONE (19:29)
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
[2022-10-02 21:51] VITALS: TEMP 98.4
[2022-10-02 21:52] VITALS: BP 144/90; O2SAT 99
== END 2022-10-02 21:34 | disposition home or self-care (01) ==
LOC: ER 18:53
DX: M54.2 Cervicalgia (principal); R51.9 Headache, unspecified; V49.50XA Passenger injured in collision with unspecified motor vehicles in traffic accident, initial encounter
CPT/HCPCS: 70450; 72125; 96372; 99284